=== PATIENT | male | born 1990 | race Caucasian/White ===

== ENCOUNTER 2017-05-25 11:30 | Emergency (ER) | payer OTHER ==
[~2017-05-25] VITALS: Ht 167.6 cm; Wt 63.6 kg
[2017-05-25 11:39] VITALS: Ht 167.6 cm; Wt 63.6 kg
--- NOTE | 2017-05-25 12:48 | ERD ---
ER Documentation Chief Complaint Date/Time DATE: 05/25/17 TIME: 12:46 Chief Complaint BROUGHT IN VIA [employer] FOR OK TO BOOK DUE TO SEIZURE WHILE IN [place]TER HPI Patient is a 18-year-old male with seizures who presents with seizure. The patient was brought in by police. He was in detention in custody and had a seizure. Stopped on its own. He does not take medicines for his seizures. He drank alcohol last night. Upon review of old medical records the patient one previous visit to the ER in 2011 for methamphetamine abuse. The patient does not currently have a primary doctor. ROS All systems reviewed and are negative except as per history of present illness. Medications Home Meds Reported Medications [Unknown] No Conflict Check 03/12/12 Allergies Allergies: Coded Allergies: Unknown: Unable to obtain (Unverified , 03/12/12) PMhx/Soc Hx Alcohol Use: Yes Hx Substance Use: Yes (METH) Hx Tobacco Use: Yes Smoking Status: Never smoker FmHx Family History: No diabetes Physical Exam Vitals Vital Signs Date Time Temp Pulse Resp B/P Pulse Ox O2 Delivery O2 Flow Rate FiO2 05/25/17 11:39 100.1 86 18 147/96 98 Physical Exam Const: No acute distress, no seizure activity Head: Atraumatic Eyes: Normal Conjunctiva ENT: Normal External Ears, Nose and Mouth. Neck: Full range of motion..~ No meningismus. Resp: Clear to auscultation bilaterally Cardio: Regular rate and rhythm, no murmurs Abd: Soft, non tender, non distended. Normal bowel sounds Skin: No petechiae or rashes Back: No midline or flank tenderness Ext: No cyanosis, or edema Neur: Awake and alert Psych: Normal Mood and Affect Results 24 hrs Laboratory Tests Test 05/25/17 11:43 Bedside Glucose 171mg/dL [facility] Accu-Chek is normal. Smoking Cessation Therapy: Pt. was lectured for greater than 3 minutes on the health risks of continued smoking and the benefits of cessation. Patient is a 26-year-old male with seizures who presents with a seizure. His Accu-Chek is normal. I do not believe he requires further workup or treatment at this time. There is no sign of discharge into police custody. He can return for any worsening symptoms. His physical exam is normal. Departure Diagnosis: Primary Impression: Seizure Condition: Fair Patient Instructions: Seizure, Recurrent [Adult] [facility] Usted se estrella hecho un examen mdico de control que le indica que no est en chevy condicin que requiera tratamiento urgente en el Departamento de Emergencia. Un estudio ms profundo y el tratamiento de kwong condicin pueden esperar sin ningn riesgo hasta que usted sea atendida/o en el consultorio de kwong mdico o chevy cl flavio. Es responsabilidad suya arreglar chevy raimundo para el seguimiento del stephanie. MANEJO DE CONDICIONES NO URGENTES EN EL FUTURO 1) Si usted tiene un mdico de atencin primaria: Usted debera llamar a kwong mdico de atencin primaria antes de venir al departamento de emergencia. Despus de las horas de consultorio, kwong doctor o kwong asociado/a est disponible por telfono. El mdico o enfermero de danna en el servicio telefnico puede asesorarle por kayla medio para atender el problema, o stephanie contrario se puede programar chevy raimundo. 2) Si usted no tiene un mdico de atencin primaria: Llame al mdico o clnica de referencia que aparece abajo guillermina las horas de consultorio para hacer chevy raimudno para que le vean. CLINICAS: [facility] [phone] [facility] [phone] [facility] [phone] [facility] [phone] [facility] [phone] [address] [facility]. [phone] [address] Additional Instructions: Llame al doctor MAANA y salina chevy RAIMUNDO PARA DENTRO DE 1-2 MCGINNIS.Dgale a la secretaria que nosotros le instruimos hacer esta raimundo.Avise o llame si kwong condicin se empeora antes de la raimundo. Regresa aqui si peor o no mejor. DIANDRA BAÑUELOS MD May 25, 2017 12:48
== END 2017-05-25 12:02 | disposition home or self-care (01) ==
LOC: E/R 11:30
DX: R56.9 Unspecified convulsions (principal); Z87.891 Personal history of nicotine dependence
CPT/HCPCS: 82962; 99282